=== PATIENT | male | born 1950 | race Caucasian/White ===

== ENCOUNTER 2017-04-14 22:32 | Inpatient (IN) | payer MEDICARE, MEDICAID ==
[~2017-04-14] VITALS: Ht 165.1 cm; Wt 49.9 kg
[~2017-04-14 22:32] MED LIST: ACID1TAB4 PO; ALBU2.5V7 NEB; ATOR10TA PO; Acetaminophen PO; BUDE10.2 INH; CAL PO; CLON0.1T14 PO; DOCU-141 PO; ESCI10TA PO; HYDR-3326 PO; IPRA0.2S6 NEB; LORA-259 PO; NICO1PAT25 TP; PANT40TA2 PO; PRED20TA PO; SIME80TA45 PO; TAMS-3 PO; TRAZ-147 PO; Vancomycin Hcl PO; ZOLP10TA2 PO; [UNRECOGNIZED DRUG - CODE] PO
[2017-04-14] MEDS ORDERED: ONDANSETRON 4 MG/2 ML VIAL IV ONE (23:00)
[2017-04-14] MEDS ORDERED: MORPHINE SULFATE 2 MG/1 ML DISP.SYRIN IV ONE (23:00)
[2017-04-14] MEDS ORDERED: ONDANSETRON 4 MG/2 ML VIAL ONE (23:19)
[2017-04-14] MEDS ORDERED: MORPHINE SULFATE 4 MG/1 ML DISP.SYRIN ONE (23:19)
[2017-04-14] MEDS ORDERED: AMLO2.5T PO (23:40)
[2017-04-14] MEDS ORDERED: ATEN25TA PO (23:40)
[2017-04-14] MEDS ORDERED: PRED20TA PO (23:40)
[2017-04-14 23:53] LABS: BASOPHILS % (AUTO) 0.1 % (0.0-2.0); HEMATOCRIT 32.6 % (36.7-47.1); HEMOGLOBIN 10.9 g/dL (12.5-16.3); LYMPHOCYTES # (AUTO) 0.5 K/uL (20.0-40.0); LYMPHOCYTES % (AUTO) 4.2 % (20.5-51.5); MEAN CORPUSCULAR HEMOGLOBIN 26.4 uug (23.8-33.4); MEAN CORPUSCULAR HGB CONC 33 g/dL (32.5-36.3); MEAN CORPUSCULAR VOLUME 78.8 fL (73.0-96.2); MONOCYTES # (AUTO) 0.9 K/uL (2.0-10.0); MONOCYTES % (AUTO) 7.8 % (0.0-11.0); NEUTROPHILS # (AUTO) 10.4 K/uL (1.8-8.9); NEUTROPHILS % (AUTO) 87.9 % (38.5-71.5); PLATELET COUNT (AUTO) 211 K/uL (152-348); RED BLOOD CELL COUNT(AUTO) 4.13 MIL/uL (4.06-5.63); WHITE BLOOD COUNT (AUTO) 11.8 K/uL (3.6-10.2)
[2017-04-14 23:53] LABS: ABG BASE EXCESS 5.3 mmol/L; ABG HCO3 30.5 mmol/L; ABG PCO2 47.4 mmHg (35.0-45.0); ABG PH 7.426 (7.350-7.450); ABG PO2 119.9 mmHg (75.0-100.0); ABG SITE RIGHT RADIAL; ABG TOTAL HEMOGLOBIN 11.6 G/dL (13.5-18.0); COHb 2.1 % (0.5-1.5); MetHb 0.2 % (0.0-1.5); O2Hb 96.3 % (94.0-97.0); VENT MODE Nasal Cannula
[2017-04-15] MEDS ORDERED: IPRATROPIUM BROMIDE 0.5 MG/2.5 ML NEBU NEB ONE
[2017-04-15] MEDS ORDERED: ALBUTEROL SULFATE 2.5 MG/3 ML NEBU NEB ONE
[2017-04-15 00:01] LABS: CREATININE 0.7 mg/dL (0.6-1.3); POTASSIUM 4.5 mmol/L (3.5-5.1)
[2017-04-15 00:13] LABS: BILIRUBIN,DIRECT 0.1 mg/dL (0.0-0.2); BILIRUBIN,TOTAL 0.4 mg/dL (0.2-1.0); TOTAL PROTEIN, SERUM 6.8 g/dL (6.4-8.2)
[2017-04-15] MEDS ORDERED: ALBUTEROL SULFATE 2.5 MG/3 ML NEBU ONE (00:14)
[2017-04-15] MEDS ORDERED: IPRATROPIUM BROMIDE 0.5 MG/2.5 ML NEBU ONE (00:15)
--- NOTE | 2017-04-15 00:25 | NUR ---
Patient states he is unable to tolerate breathing treatment at this time. He was observed at the edge of the bed with the mask removed. Patient states "it doesn't help me breathe." Education provided, patient refuses to continue breathing treatment at this time. ERMD notified.
[2017-04-15] MEDS ORDERED: methylPREDNISolone SOD SUCC 125 MG/2 ML VIAL IV ONE (00:30)
[2017-04-15] MEDS ORDERED: IV NORMAL SALINE 1000 ML BAG IV ONE (00:30)
--- NOTE | 2017-04-15 00:35 | NUR ---
Patient's IV line observed to be non-functioning. IV removed from LEFT FA. Catheter intact and site benign. Pressure and 4x4 gauze applied to site. No bleeding noted. A new IV will be started and documented.
[2017-04-15] MEDS ORDERED: methylPREDNISolone SOD SUCC 125 MG/2 ML VIAL ONE (00:50)
--- NOTE | 2017-04-15 01:33 | NUR ---
Pt. admitted to TELE, under care of Bebe Silva (MALISSA). Belongs List completed
[2017-04-15 01:45] VITALS: BP 119/57
[2017-04-15] MEDS ORDERED: ONDANSETRON 4 MG/2 ML VIAL IV PRN (01:45)
[2017-04-15] MEDS ORDERED: ZOLPIDEM 5 MG TABLET PO PRN (01:45)
[2017-04-15] MEDS ORDERED: LEVOFLOXACIN 750MG/D5W 750 MG in PREMIXED 1 EACH IV SCH ×2 (01:45→21:00)
[2017-04-15] MEDS ORDERED: Z GUARD REMEDY PASTE 57 GM TUBE TOP PRN (01:45)
[2017-04-15] MEDS: BUDESONIDE 0.25 MG/2 ML NEBU NEB SCH ×3 (02:00→19:10)
[2017-04-15] MEDS ORDERED: LEVOFLOXACIN 750MG/D5W 150 ML IV ONE (02:10)
[2017-04-15] MEDS ORDERED: ZOLPIDEM 5 MG TABLET ONE (02:25)
--- NOTE | 2017-04-15 03:00 | NUR ---
aAdmitted this 66 y/o male patient via [facility], awake alert & oriented, no chest pain complaint. Placed on Telemetry w/ Dx. COPD exacerbation. Exertional SOB noted, placed on high fowlers position w/ O2 1L/NC in use. Patient O2Sat 94-97%. personnel monitor shows NSR w/ PACs. Vital signs WNL. Called [id number] practitioner for admission orders. Received orders & carried out. Levaquin 750 mg IVPB adm. as ordered. Needs attended.
[2017-04-15 04:00] VITALS: BP 142/70
[2017-04-15] MEDS: LORAZEPAM 1 MG TABLET PO SCH ×4 (04:47→23:19)
[2017-04-15] MEDS ORDERED: LORAZEPAM 1 MG TABLET ONE (04:51)
[2017-04-15] MEDS: methylPREDNISolone SOD SUCC 40 MG/ML VIAL IV SCH ×3 (06:05→22:08)
[2017-04-15] MEDS ORDERED: methylPREDNISolone SOD SUCC 40 MG/ML VIAL ONE (06:19)
--- NOTE | 2017-04-15 06:57 | NUR ---
Patient fairly rested & anxious, requesting to get his early dose of anti anxiety meds. Ativan 1 mg po given. NSR on the monitor.
[2017-04-15] MEDS: ALBUTEROL SULFATE 1.25 MG/3 ML NEBU NEB SCH ×3 (07:23→19:09)
[2017-04-15] MEDS: IPRATROPIUM BROMIDE 0.5 MG/2.5 ML NEBU NEB SCH ×3 (07:23→19:09)
--- NOTE | 2017-04-15 08:00 | NUR ---
awake alert and oriented, on 2l/nc 02, with shortness of breath with activity, tele SR 90's, explained plan of cre- verbalized understanding, safety measures maintained, call light within reach
[2017-04-15] MEDS: HYDROCODONE/APAP 5-325MG TABLET PO PRN ×2 (08:08→18:14)
--- NOTE | 2017-04-15 08:08 | NUR ---
medicated with [place] 5/325 for c/o of genralized pain, breathing treatment given by RT earlier
[2017-04-15] MEDS: ACIDOPHILUS/BULGARICUS CHEW TAB PO SCH ×2 (08:46→20:15)
[2017-04-15] MEDS: TAMSULOSIN HCL 0.4 MG CAP.SR.24H PO SCH ×2 (08:47→20:15)
[2017-04-15] MEDS: AMLODIPINE 2.5 MG TABLET PO SCH ×2 (08:47→16:22)
[2017-04-15] MEDS: ATENOLOL 25 MG TABLET PO SCH (08:47)
[2017-04-15] MEDS: ESCITALOPRAM OXALATE 10 MG TABLET PO SCH (08:51)
[2017-04-15 11:04] VITALS: BP 134/62
[2017-04-15] MEDS: FLUTICASONE/VILANTEROL 1 EACH BLST.W.DEV INH SCH ×2 (11:56→20:14)
[2017-04-15] MEDS: ASPIRIN EC 81 MG TABLET.DR PO SCH (11:56)
--- NOTE | 2017-04-15 12:00 | NUR ---
has occasionall cough productive of scant thin clear secretions, no distress noted, dozing on and off
[2017-04-15 15:15] VITALS: BP 119/83
[2017-04-15] MEDS ORDERED: MAGNESIUM HYDROXIDE 30 ML LIQUID UDC PO PRN (15:45)
--- NOTE | 2017-04-15 16:29 | NUR ---
been medicated with Ativan 1 mg po for anxiety
[2017-04-15] MEDS: FLUTICASONE PROP NASAL SPRAY 16 GM BOTTLE NS SCH (17:05)
[2017-04-15] MEDS: ALBUTEROL SULFATE 2.5 MG/3 ML NEBU NEB PRN (17:41)
--- NOTE | 2017-04-15 18:04 | NUR ---
resting in bed, breathing treatment by RT as prn, all needs attended and met, call light within reach
[2017-04-15 20:00] VITALS: BP 120/66
[2017-04-15] MEDS: ACETAMINOPHEN 325 MG TABLET PO PRN (20:27)
--- NOTE | 2017-04-15 20:30 | NUR ---
PTS' A/A/O X3-4 DENIED OF PAIN,COUGHED ON/OFF BUT NO SOB NOTED.ON O2 NC 2 LPM.PT AMBULATED STEADILY TO BATHROOM FOR URINATION.UPDATED THE PLAN OF CARE TO PT;HE VERBALIZED UNDERSTANDING AND COOPERATIVE W/ASSISTANCE.KEPT COMFORT.CALL-LIGHT WITHIN REACH.
[2017-04-15] MEDS ORDERED: ATORVASTATIN 10 MG TABLET PO SCH (21:00)
[2017-04-15] MEDS ORDERED: DOCUSATE SODIUM 100 MG CAPSULE PO SCH (21:00)
[2017-04-15] MEDS ORDERED: TRAZODONE 100 MG TABLET PO SCH (21:00)
[2017-04-16] MEDS: HYDROCODONE/APAP 5-325MG TABLET PO PRN ×3 (01:44→13:21)
[2017-04-16] MEDS: ALBUTEROL SULFATE 2.5 MG/3 ML NEBU NEB PRN (02:36)
[2017-04-16] MEDS: BENZOCAINE/MENTH/CETYLPYRD LOZENGE MM PRN ×2 (02:57→08:49)
[2017-04-16] MEDS: ACETAMINOPHEN 325 MG TABLET PO PRN ×2 (03:14→10:52)
--- NOTE | 2017-04-16 03:14 | NUR ---
AFTER PT REQUESTED FOR HHN RX;COUGHED A LOT BUT NO SOB NOTED.PT C/O HEADACHE UPON THIS TIME;TYLENOL 650 MG PO X1;GAVE WARM WATER TO PT REQUEST.15 MINUTES LATER,PT WENT BACK TO SLEEP.CONTINUED MONITORING TO PT.KEPT CALL-LIGHT WITHIN REACH.
[2017-04-16 04:55] VITALS: BP 122/65
[2017-04-16] MEDS: methylPREDNISolone SOD SUCC 40 MG/ML VIAL IV SCH (05:05)
[2017-04-16] MEDS: LORAZEPAM 1 MG TABLET PO SCH ×2 (05:06→11:01)
--- NOTE | 2017-04-16 06:10 | NUR ---
PT'S SLEEPING AT THIS TIME,UNLABORED BREATHING NOTED,STILL ON O2 NC 2 LPM,NO DISTRESS NOTED IN THE SHIFT.PT TOLERATED WELL WITH TX ORDER.
[2017-04-16 07:05] LABS: CREATININE 0.7 mg/dL (0.6-1.3); MAGNESIUM 2.3 mg/dL (1.8-2.4); PHOSPHOROUS 3.3 mg/dL (2.5-4.9); POTASSIUM 4.1 mmol/L (3.5-5.1)
[2017-04-16 07:45] LABS: HEMOGLOBIN 10.4 G/DL (14.0-18.0); LYMPHOCYTES # (AUTO) 0.2 K/UL (0.8-4.8); LYMPHOCYTES % (AUTO) 1.6 % (20.5-51.5); MEAN CORPUSCULAR HEMOGLOBIN 26.7 UUG (27.0-31.0); MEAN CORPUSCULAR HGB CONC 34 g/dL (32.0-37.0); MEAN CORPUSCULAR VOLUME 79.4 FL (82.0-92.0); MONOCYTES # (AUTO) 0.5 K/UL (0.1-1.30); NEUTROPHILS # (AUTO) 12.7 K/UL (1.8-8.9); NEUTROPHILS % (AUTO) 94.4 % (38.5-71.5); PLATELET COUNT (AUTO) 202 K/UL (150-450); RED BLOOD CELL COUNT(AUTO) 3.91 MIL/UL (4.7-6.1); WHITE BLOOD COUNT (AUTO) 13.4 K/UL (4.0-11.2)
[2017-04-16] MEDS: IPRATROPIUM BROMIDE 0.5 MG/2.5 ML NEBU NEB SCH ×2 (08:03→13:45)
[2017-04-16] MEDS: BUDESONIDE 0.25 MG/2 ML NEBU NEB SCH (08:03)
[2017-04-16] MEDS: ALBUTEROL SULFATE 1.25 MG/3 ML NEBU NEB SCH ×2 (08:03→13:45)
[2017-04-16] MEDS: FLUTICASONE/VILANTEROL 1 EACH BLST.W.DEV INH SCH (08:50)
[2017-04-16] MEDS: FLUTICASONE PROP NASAL SPRAY 16 GM BOTTLE NS SCH (08:50)
[2017-04-16] MEDS: ACIDOPHILUS/BULGARICUS CHEW TAB PO SCH (08:51)
[2017-04-16] MEDS: ASPIRIN EC 81 MG TABLET.DR PO SCH (08:51)
[2017-04-16] MEDS: ESCITALOPRAM OXALATE 10 MG TABLET PO SCH (08:51)
[2017-04-16] MEDS: TAMSULOSIN HCL 0.4 MG CAP.SR.24H PO SCH (08:51)
[2017-04-16] MEDS: ATENOLOL 25 MG TABLET PO SCH (08:52)
[2017-04-16] MEDS: AMLODIPINE 2.5 MG TABLET PO SCH (08:52)
[2017-04-16] MEDS ORDERED: LEVO500T2 PO (11:26)
[2017-04-16] MEDS ORDERED: METH4TAB3 PO (11:26)
[2017-04-16 11:50] LABS: BAND % (MANUAL) 3 % (0-10); LYMPHOCYTES % (MANUAL) 3 % (20-40); METAMYELOCYTES % 1 % (0-1); MONOCYTES % (MANUAL) 1 % (2-10); NEUTROPHILS % (MANUAL) 92 % (42-75)
[2017-04-16 11:53] VITALS: BP 122/63
--- NOTE | 2017-04-16 13:00 | NUR ---
Pt. resting in bed and stating he is anxious. Ativan given per mar with good effect. Pt. has discharge orders. Remains on 2 l via n/c and coughing intermittently. Medicated for generalized arthritic pain. Fair appetite. Pt. states he looks forward to going home and because he will eat and rest better.
[2017-04-16 15:27] VITALS: BP 115/66
--- NOTE | 2017-04-16 17:45 | NUR ---
Pt. given discharge instructions and RX and caregiver present. All questions answered. Pt. has own oxygen supply for transport home. Pt.offered no complaints. Pt. left unit via [facility] with all belongings accompanied by caregiver.
[2017-04-16] MEDS ORDERED: methylPREDNISolone SOD SUCC 40 MG/ML VIAL IV SCH (21:00)
== END 2017-04-16 17:00 | disposition home or self-care (01) | DRG 190 ==
LOC: ER 22:34 → TELE 04-15 00:10 → MED 04-16 00:04
PROVIDERS: ADMIT Nurse Practitioner Acute Care; ATTEND Internal Medicine
DX: J44.0 Chronic obstructive pulmonary disease with (acute) lower respiratory infection (principal); E43 Unspecified severe protein-calorie malnutrition; J96.11 Chronic respiratory failure with hypoxia; J96.12 Chronic respiratory failure with hypercapnia; I27.20 Pulmonary hypertension, unspecified; C78.02 Secondary malignant neoplasm of left lung; C78.7 Secondary malignant neoplasm of liver and intrahepatic bile duct; C15.9 Malignant neoplasm of esophagus, unspecified; Z68.1 Body mass index [BMI] 19.9 or less, adult; J44.1 Chronic obstructive pulmonary disease with (acute) exacerbation; J20.8 Acute bronchitis due to other specified organisms; D50.9 Iron deficiency anemia, unspecified; K59.00 Constipation, unspecified; Z99.81 Dependence on supplemental oxygen; Z79.899 Other long term (current) drug therapy; Z87.891 Personal history of nicotine dependence; Z79.52 Long term (current) use of systemic steroids; Z79.51 Long term (current) use of inhaled steroids; F32.9 Major depressive disorder, single episode, unspecified; F41.9 Anxiety disorder, unspecified; Z87.438 Personal history of other diseases of male genital organs; Z86.19 Personal history of other infectious and parasitic diseases; I11.9 Hypertensive heart disease without heart failure; M19.90 Unspecified osteoarthritis, unspecified site; G89.29 Other chronic pain; K29.70 Gastritis, unspecified, without bleeding
CPT/HCPCS: 36415; 36600; 70030-TC; 71010; 83605; 83735; 84100; 85025; 85730; 87040; 93005; 94640; 94664; A4663; J1956; J2270; J2405; J2920; J2930; J3535; J3590; J7030